=== PATIENT | female | born 2000 ===

== ENCOUNTER 2020-12-24 01:34 | Inpatient (IN) ==
[2020-12-24] MEDS ORDERED: BUTORPHANOL 2 MG/ML VIAL IV PRN (02:10)
[2020-12-24] MEDS ORDERED: MEPERIDINE 50 MG/1 ML VIAL IV PRN (02:10)
[2020-12-24] MEDS ORDERED: ONDANSETRON 4 MG/2 ML VIAL IV PRN (02:10)
[2020-12-24] MEDS: LACTATED RINGERS 1,000 ML IV SCH ×6 (02:15→23:53)
[2020-12-24 02:49] LABS: Basophils % 0.1 % (0.0-0.8); Eosinophils # 0.1 10*3/uL (0.0-0.87); Eosinophils % 0.9 % (0.00-10.9); Hematocrit 34.8 VOL% (35.7-47.0); Hemoglobin 10.6 GM/DL (12.0-16.0); Immature Granulocytes % 0.2 %; Immature Granulocytes Absolute 0.02 #; Lymphocytes # 2.1 10*3/uL (1.4-4.0); Lymphocytes % 24.6 % (21.3-54.2); Mean Corpuscular HGB Conc 30.5 GM/DL (32-36); Mean Corpuscular Volume 77.9 FL (87-102); Mean Platelet Volume 12.2 FL (9.6-12.0); Monocytes % 7.5 % (1.7-12.7); Neutrophils % 66.7 % (38.7-73.9); Platelet Count 242 T/CUMM (130-400); Red Blood Count 4.47 MC/CUMM (3.8-5.5); White Blood Count 8.6 T/CUMM (4-12)
[2020-12-24 03:10] LABS: INR 0.9; PT Patient Result 9.8 SECS (10.5-12.0)
[2020-12-24 03:11] LABS: Partial Thromboplastin Time 25.1 SECS (23.9-33.8)
[2020-12-24 04:03] LABS: Alanine Aminotransferase 14 U/L (13-56); Albumin 2.6 G/DL (3.4-5.0); Alkaline Phosphatase 233 U/L (45-117); Aspartate Amino Transferase 17 U/L (0-37); Bilirubin,Direct < 0.100 MG/DL (0.0-0.20); Bilirubin,Total < 0.39 MG/DL (0.20-1.00); Blood Urea Nitrogen 9 MG/DL (7-18); Calcium 8.6 MG/DL (8.5-10.1); Carbon Dioxide 24 MMOL/L (21-32); Estimated Glom Filtration Rate 175 ML/MIN; Glucose 90 MG/DL (74-106); Osmolality,Calculated 275.5 MOS/KG (273-304); Potassium 4.1 MMOL/L (3.5-5.1); Sodium 139 MMOL/L (136-145); Total Protein 6.8 G/DL (6.4-8.2); Uric Acid 3.4 MG/DL (2.6-6.0)
[2020-12-24] MEDS ORDERED: TRANEXAMIC ACID 1,000 MG/10 ML VIAL ONE (05:02)
[2020-12-24] MEDS ORDERED: CARBOPROST TROMETHAMINE 250 MCG/ML AMP IM ONE (05:02)
[2020-12-24] MEDS ORDERED: METHYLERGONOVINE 0.2 MG/1 ML AMP ONE (05:02)
[2020-12-24] MEDS ORDERED: miSOPROStoL 200 MCG TABLET ONE (05:02)
[2020-12-24] MEDS ORDERED: CITRIC ACID/SODIUM CITRATE 30 ML UDCUP ONE (05:03)
[2020-12-24] MEDS ORDERED: FAMOTIDINE 20 MG/2 ML VIAL IV ONE ×2 (05:04→07:45)
[2020-12-24] MEDS ORDERED: OXYTOCIN/LR 20 UNIT/1,000 ML BAG IV ONE ×2 (05:04→09:26)
[2020-12-24] MEDS ORDERED: OXYTOCIN/LR 30 UNIT/1,000 ML BAG IV ONE (07:44)
[2020-12-24] MEDS ORDERED: CITRIC ACID/SODIUM CITRATE 30 ML UDCUP PO ONE (07:45)
[2020-12-24] MEDS ORDERED: LACTATED RINGERS 1,000 ML IV ONE (08:28)
[2020-12-24] MEDS ORDERED: ONDANSETRON 4 MG/2 ML VIAL ONE (08:28)
[2020-12-24] MEDS ORDERED: PHENYLEPHRINE 1 MG/10 ML SYRINGE IV ONE (08:28)
[2020-12-24] MEDS ORDERED: BUPIVACAINE SPINAL 0.75% 2 ML AMP SPINAL ONE (08:28)
[2020-12-24] MEDS ORDERED: KETOROLAC 30 MG/1 ML VIAL ONE (08:55)
[2020-12-24 09:03] LABS: Cord Arterial Blood HCO3 27.8 MMOL/L; Cord Venous Blood HCO3 23.4 MMOL/L; Cord Venous Blood PCO2 47.3 MMHG; Cord Venous Blood PO2 30.1
[2020-12-24 09:23] LABS: Bilirubin,Urine Negative (Negative); Blood, Urine Negative (Negative); Glucose,Urine (UA) Negative (Negative); Ketones,Urine Negative (Negative); Mucus,Urine Few /LPF (Occasional); Nitrite,Urine Negative (Negative); Protein,Urine Negative; RBC,Urine <1 /HPF (0-4); Squamous Epithelial Cell,Urine Occasional /HPF (0-10); Urine Appearance CLEAR (Clear); Urine Color Yellow (Yellow); Urine Specific Gravity 1.027 (1.001-1.035); Urine Urobilinogen < 2.0 EU/DL (0.2-1.0)
[2020-12-24] MEDS ORDERED: MAGNESIUM HYDROXIDE SUSP 30 ML UDCUP PO PRN (09:26)
[2020-12-24] MEDS ORDERED: RHO(D) IMMUNE GLOBULIN 300 MCG SYRINGE IM ONE (09:26)
[2020-12-24] MEDS ORDERED: SIMETHICONE CHEW 80 MG TABLET PO PRN (09:26)
[2020-12-24] MEDS ORDERED: IBUPROFEN 800 MG TABLET PO PRN (09:26)
[2020-12-24] MEDS ORDERED: ACETAMINOPHEN 325 MG TABLET PO PRN (09:26)
[2020-12-24] MEDS: ACETAMINOPHEN 500 MG TABLET PO SCH ×3 (12:34→23:57)
[2020-12-24] MEDS: KETOROLAC 30 MG/1 ML VIAL IV SCH ×3 (14:50→21:34)
[2020-12-24 16:55] LABS: Basophils % 0.2 % (0.0-0.8); Eosinophils % 0.1 % (0.00-10.9); Hematocrit 24.4 VOL% (35.7-47.0); Immature Granulocytes % 0.4 %; Immature Granulocytes Absolute 0.05 #; Lymphocytes # 1.3 10*3/uL (1.4-4.0); Mean Corpuscular HGB Conc 30.7 GM/DL (32-36); Mean Corpuscular Volume 78.7 FL (87-102); Monocytes % 7.2 % (1.7-12.7); Neutrophils % 81.1 % (38.7-73.9); Platelet Count 201 T/CUMM (130-400); Red Cell Distribution Width 15.1 % (9.3-17.3)
[2020-12-24 17:01] LABS: Hemoglobin 7.5 GM/DL (12.0-16.0)
[2020-12-24] MEDS ORDERED: FERROUS SULFATE 325 MG TABLET PO SCH (21:00)
[2020-12-25] MEDS ORDERED: KETOROLAC 30 MG/1 ML VIAL IV ONE (03:00)
[2020-12-25 05:23] LABS: Basophils % 0.3 % (0.0-0.8); Eosinophils % 0.5 % (0.00-10.9); Hematocrit 20.6 VOL% (35.7-47.0); Hemoglobin 6.5 GM/DL (12.0-16.0); Immature Granulocytes % 0.2 %; Immature Granulocytes Absolute 0.01 #; Lymphocytes # 1.6 10*3/uL (1.4-4.0); Lymphocytes % 24.7 % (21.3-54.2); Mean Corpuscular HGB Conc 31.6 GM/DL (32-36); Mean Corpuscular Volume 78.3 FL (87-102); Mean Platelet Volume 12.4 FL (9.6-12.0); Monocytes % 7.6 % (1.7-12.7); Neutrophils % 66.7 % (38.7-73.9); Platelet Count 157 T/CUMM (130-400); Red Blood Count 2.63 MC/CUMM (3.8-5.5); Red Cell Distribution Width 15.5 % (9.3-17.3); White Blood Count 6.4 T/CUMM (4-12)
[2020-12-25] MEDS: METOCLOPRAMIDE 10 MG TABLET PO SCH ×2 (08:30→16:21)
[2020-12-25] MEDS: MULTIVITAMIN (PRENATAL) TABLET PO SCH (08:30)
[2020-12-25] MEDS: DOCUSATE SODIUM 100 MG CAPSULE PO SCH ×2 (08:30→20:40)
[2020-12-25] MEDS ORDERED: FERROUS SULFATE 325 MG TABLET PO SCH (09:00)
[2020-12-25] MEDS: FERROUS SULFATE 325 MG TABLET PO SCH (20:40)
[2020-12-26] MEDS: METOCLOPRAMIDE 10 MG TABLET PO SCH ×2 (00:02→09:32)
[2020-12-26 09:07] VITALS: BP 143/87
[2020-12-26] MEDS: MULTIVITAMIN (PRENATAL) TABLET PO SCH (09:31)
[2020-12-26] MEDS: DOCUSATE SODIUM 100 MG CAPSULE PO SCH (09:31)
[2020-12-26] MEDS: FERROUS SULFATE 325 MG TABLET PO SCH (09:32)
== END 2020-12-26 12:15 | disposition home or self-care (01) | DRG 540 ==
LOC: N.LD 01:34 → N.OB 13:06
PROVIDERS: ADMIT Obstetrics & Gynecology; ATTEND Obstetrics & Gynecology
PROC: LDCSECT (ICD-10-PCS; 2020-12-24 08:00)

== ENCOUNTER 2021-01-11 13:10 | Observation (INO) ==
[2021-01-11] MEDS ORDERED: ACETAMINOPHEN/CODEINE 300-30 MG TABLET PO PRN ×3 (15:06→16:50)
[2021-01-11 15:38] LABS: Basophils % 0.3 % (0.0-0.8); Eosinophils # 0.2 10*3/uL (0.0-0.87); Eosinophils % 3.1 % (0.00-10.9); Hematocrit 26.4 VOL% (35.7-47.0); Hemoglobin 7.7 GM/DL (12.0-16.0); Immature Granulocytes % 0.4 %; Immature Granulocytes Absolute 0.03 #; Lymphocytes # 1.8 10*3/uL (1.4-4.0); Lymphocytes % 25.6 % (21.3-54.2); Mean Corpuscular HGB Conc 29.2 GM/DL (32-36); Mean Corpuscular Volume 79.8 FL (87-102); Mean Platelet Volume 11.6 FL (9.6-12.0); Neutrophils % 62.6 % (38.7-73.9); Platelet Count 352 T/CUMM (130-400); Red Blood Count 3.31 MC/CUMM (3.8-5.5); Red Cell Distribution Width 17.2 % (9.3-17.3); White Blood Count 7.2 T/CUMM (4-12)
[2021-01-11 15:55] LABS: Albumin 2.6 G/DL (3.4-5.0); Potassium 3.5 MMOL/L (3.5-5.1); Total Protein 6.9 G/DL (6.4-8.2)
[2021-01-11] MEDS: LACTATED RINGERS 1,000 ML IV SCH ×2 (16:30→23:30)
[2021-01-11 16:44] LABS: INR 1.1; PT Patient Result 12.1 SECS (10.5-12.0)
[2021-01-11 16:53] LABS: Anisocytosis 2+; Band Neutrophils 1 % (0-10); Eosinophils 5 % (0-10); Hypochromasia 2+; Lymphocytes 31 % (20-55); Segmented Neutrophils 55 % (50-85); Total Cells Counted 100
[2021-01-11 16:54] LABS: Atypical Lymphocytes Few; Polychromasia Few; Reactive Lymphocytes Few
[2021-01-11 16:55] LABS: Elliptocytes Few; Platelet Estimate Adequate; Poikilocytosis Slight; Schistocytes Slight
[2021-01-11] MEDS: ENOXAPARIN 120 MG/0.8 ML SYRINGE SUBCUT SCH (17:47)
[2021-01-11] MEDS ORDERED: WARFARIN 5 MG TABLET PO SCH (18:00)
[2021-01-11] MEDS: FERROUS SULFATE 325 MG TABLET PO SCH (21:04)
[2021-01-12 05:55] LABS: INR 1.1; PT Patient Result 12.1 SECS (10.5-12.0)
[2021-01-12] MEDS: ENOXAPARIN 120 MG/0.8 ML SYRINGE SUBCUT SCH (06:14)
[2021-01-12] MEDS: LACTATED RINGERS 1,000 ML IV SCH (07:43)
[2021-01-12] MEDS: FERROUS SULFATE 325 MG TABLET PO SCH (08:45)
[2021-01-12 11:30] VITALS: BP 131/78
[2021-01-12] MEDS ORDERED: APIXABAN 5 MG TABLET PO SCH (21:00)
== END 2021-01-12 13:56 | disposition home or self-care (01) ==
LOC: N.ULTRA 13:10 → N.OB 13:10
PROVIDERS: ADMIT Obstetrics & Gynecology; ATTEND Obstetrics & Gynecology